=== PATIENT | female | born 1980 | race Caucasian/White ===

== ENCOUNTER 2018-09-16 14:34 | Emergency (ER) | payer OTHER ==
[~2018-09-16] VITALS: Ht 144.8 cm; Wt 75.0 kg
[~2018-09-16 14:34] MED LIST: LEVO50TA7 PO
[2018-09-16 15:04] VITALS: Ht 144.8 cm; Wt 75.0 kg
--- NOTE | 2018-09-16 18:49 | ERD ---
ER Documentation Chief Complaint Chief Complaint LBP X 1 DAY HPI The patient is a 38-year-old female, presenting to the ER because of lower back pain for 1 month, worse today, worse with movement, complains of frequent urination. She denies fecal/urinary incontinence, fever, chills, neck pain, chest pain, dyspnea, abdominal pain, vomiting, diarrhea, constipation. She does not smoke nor drink, denies any history of IV drug abuse Past medical history: Hypothyroidism Past surgical history: ROS All systems reviewed and are negative except as per history of present illness. Medications Home Meds Active Scripts Carisoprodol* (Soma*) 350 Mg Tablet, 350 MG PO TID PRN for MUSCLE SPASMS, #15 TAB Prov:DENISE RILEY MD 09/16/18 Ibuprofen* (Motrin*) 600 Mg Tab, 600 MG PO Q6H PRN for PAIN AND OR ELEVATED TEMP, #30 TAB Prov:DENISE RILEY MD 09/16/18 Reported Medications Levothyroxine Sodium* (Levothyroxine Sodium*) 50 Mcg Tablet, 50 MCG PO DAILY, TAB 08/02/14 Allergies Allergies: Coded Allergies: No Known Allergy (Unverified , 08/02/14) PMhx/Soc History of Surgery: Yes () Anesthesia Reaction: No Hx Neurological Disorder: No Hx Cardiac Disorders: No Hx Psychiatric Problems: No Hx Miscellaneous Medical Probl: Yes (HYPOTHYROID) Hx Alcohol Use: No Hx Substance Use: No Hx Tobacco Use: No Physical Exam Vitals Vital Signs Date Temp Pulse Resp B/P (MAP) Pulse Ox O2 O2 Flow FiO2 Time Delivery Rate 09/16/18 99.1 89 18 133/77 100 15:04 (95) Physical Exam Const: No acute distress. Head: Atraumatic. Eyes: Normal Conjunctiva. ENT: Normal External Ears, Nose and Mouth. Neck: Full range of motion. No meningismus. Resp: Clear to auscultation bilaterally. Cardio: Regular rate and rhythm. Abd: Soft, non distended, normal bowel sounds, non tender. No right lower quadrant/right upper quadrant/epigastric/CVA tenderness Skin: No petechiae or rashes. Back: No midline or flank tenderness. Ext: No cyanosis, or edema. Neur: Awake and alert. No focal deficit Psych: Normal Mood and Affect. Results 24 hrs Laboratory Tests Test 3/20/19 19:11 09/16/18 19:12 Bedside Urine pH (LAB) 5.5 Bedside Urine Protein (LAB) Negative Bedside Urine Glucose (UA) Negative Bedside Urine Ketones (LAB) Negative Bedside Urine Blood Negative Bedside Urine Nitrite (LAB) Negative Bedside Urine Leukocyte Esterase (L Trace POC Beta HCG, Qualitative NEGATIVE Current Medications Medications Dose Sig/Usman Start Time Status Last (Trade) Ordered Route PRN Stop Time Admin Dose Reason Admin Ketorolac 60 mg ONCE STAT 09/16/18 Cancel Tromethamine IM 19:19 (Toradol) 09/16/18 19:20 Ketorolac 30 mg ONCE STAT 09/16/18 DC Tromethamine IV 19:21 (Toradol) 09/16/18 19:25 Procedures/MDM MEDICAL MAKING DECISION: The patient is a 38-year-old female, presenting with acute back pain, was treated with Toradol 30 mg IV for pain with good response, stable for outpatient follow-up The differential diagnoses considered include but are not limited to caudal equina syndrome, spinal abscess, DJD, diskitis, lumbar radiculopathy. Departure Diagnosis: Primary Impression: Back pain Condition: Good Comments She was discharged with Motrin and Soma I discussed the findings with the patient. I advised the patient to follow-up with the primary physician in about 2-3 days, sooner if needed and return if any concern. Disclaimer: Inadvertent spelling and grammatical errors are likely due to EHR/dictation software use and do not reflect on the overall quality of patient care. Also, please note that the electronic time recorded on this note does not necessarily reflect the actual time of the patient encounter. DENISE RILEY MD Sep 16, 2018 18:49
[2018-09-16] MEDS ORDERED: KETOROLAC 60 MG INJ IM STA (19:19)
[2018-09-16] MEDS ORDERED: KETOROLAC 30 MG INJ IV STA (19:21)
[2018-09-16] MEDS ORDERED: CARI350T PO (19:31)
[2018-09-16] MEDS ORDERED: IBUP-1542 PO (19:31)
[2018-09-16 20:02] VITALS: BP 106/53; PULSE 65; RESP 18
== END 2018-09-16 20:02 | disposition home or self-care (01) ==
LOC: E/R 14:34
DX: M54.5 Low back pain (principal)
CPT/HCPCS: 81003; 81025; 96372; J1885; Z7502